=== PATIENT | male | born 1980 | race Caucasian/White ===

== ENCOUNTER 2016-09-22 03:41 | Inpatient (IN) | payer SELFPAY ==
--- NOTE | ~2016-09-22 | DS ---
Discharge Summary [facility] [address] [place]. [address] NAME: MACI SANDERSON : 84 STATUS : DIS IN PAT#: [id number] AGE: 36 ADM/REG DATE : 09/22/16 MR#: [id number] REPORT SERV DATE: 09/24/16 DICTATED BY: DARRELL LANDRY DATE: 09/23/16 REPORT STATUS : Draft TRANSCRIBED BY: MODLinette DATE: 09/23/16 ADMISSION DATE: 09/22/2016 DISCHARGE DATE: 09/23/2016 PROCEDURES DONE: 1. On 09/22/2016 chest x-ray: No acute process. 2. On 09/23/2016 chest x-ray: Borderline heart size. No change from prior study. CONSULTATION: Margret Kaur M.D. for Surgery. REASON FOR ADMISSION: Chest pain. HISTORY OF PRESENT ILLNESS: A 36-year-old white male with past medical history of coronary artery disease status post history of nonobstructive coronary artery disease, hypertension, hyperlipidemia, diabetes type 2, morbid obesity with BMI of 59, presenting with chest pain unknown duration. The patient was admitted for further evaluation of chest pain. The patient had a hypertensive urgency with a systolic blood pressure of greater than 200. The patient initially was seen at [facility] ER, and was transferred to [facility] for further evaluation and treatment. The patient had a positive stress test back on 02/28/2016. The patient underwent heart catheterization at that time and shows mild coronary arteries without significant stenosis. The patient had a normal left ventricular systolic function with an EF of 60%. Cardiology at that time recommended medical therapy and risk modification. On further questioning, the patient stated that he has not been taking his medications due to his son being autistic. Apparently, the patient has been noncompliant as far as taking his medications regularly. In addition, the patient has been complaining of abdominal pain secondary to the patient having a ventral hernia. Surgery was consulted for further evaluation and treatment. Surgery recommended the patient wearing an abdominal binder to decrease the abdominal hernia. More importantly, the patient was also recommended not to do heavy lifting. On the time of discharge, the patient was reminded to be compliant with his medications. During his hospital stay his blood pressure was well controlled while on his home medications. Prior to discharge, the patient also was asking that prescriptions written for one month supply of his medications. The patient admitted to not having any medications whatsoever. Questionable if this patient is following at [facility] for followup. Nonetheless, the patient advised to continue follow up with [facility] to continue his current medications. DISPOSITION: The patient is feeling fine, no complaints. ACTIVITY: As tolerated. DIET: Cardiac. INSTRUCTIONS UPON DISCHARGE: The patient is to follow up with [facility]. The patient advised to wear his abdominal binder. Discharge Summary [address] [address] NAME: MACI SANDERSON : 84 STATUS : DIS IN PAT#: [id number] AGE: 36 ADM/REG DATE : 09/22/16 MR#: [id number] REPORT SERV DATE: 09/24/16 DICTATED BY: DARRELL LADNRY DATE: 09/23/16 REPORT STATUS : Draft TRANSCRIBED BY: HAFSA DATE: 09/23/16 The patient advised not to do any heavy lifting. MEDICATIONS UPON DISCHARGE: 1. Amlodipine 10 mg p.o. daily. 2. Aspirin 81 mg p.o. daily. 3. Coreg 25 mg p.o. b.i.d. 4. Lisinopril/hydrochlorothiazide 20/25 mg p.o. daily. 5. Pravachol 20 mg p.o. daily. 6. Hydralazine 50 mg p.o. t.i.d. 7. Glucophage 50 mg p.o. daily. DIAGNOSES UPON DISCHARGE: 1. Chest pain, secondary to hypertensive urgency. 2. Hypertensive urgency. 3. Ventral hernia. 4. Noncompliance. CECILIA/HAFSA Darrell Landry MD / [id number] CC: Darrell Landry MD
--- NOTE | ~2016-09-22 | CN ---
Consultation Report [facility] [address] [place]. [address] NAME: MACI PETERSON : 84 STATUS : ADM IN PAT#: [id number] AGE: 36 ADM/REG DATE : 09/22/16 MR#: [id number] REPORT SERV DATE: 09/22/16 DICTATED BY: LINDA KAUR DATE: 09/22/16 REPORT STATUS : Draft TRANSCRIBED BY: MODL DATE: 09/22/16 CONSULTATION DATE OF CONSULTATION: 09/22/2016 REASON FOR CONSULTATION: Ventral hernia. HISTORY OF PRESENT ILLNESS: Mr. Peterson is a 36-year-old, obese gentleman with multiple comorbidities, who was transferred from [facility] to [facility] for chest pain, shortness of breath and right upper extremity weakness with numbness with paresthesias. Surgery was consulted for ventral hernia. He has undergone a cardiac workup, which has been negative despite his multiple comorbidities. He noted pain at the site of a chronic ventral hernia while he was trying to get out of bed at [facility]. Dr. Infante was able to reduce the hernia but it recurred in the IMCU and therefore, General Surgery was consulted for assistance. Please see Dr. Infante' dictation from 09/22/2016. For past medical history, past surgical history, allergies, medications, social history, family history, and review of systems as stated in the HPI, otherwise negative. PHYSICAL EXAMINATION: VITAL SIGNS: Temperature 97.5, pulse 72, respiratory rate 14, blood pressure 110/58. GENERAL: Alert and obese white male, in no acute distress. HEENT: Normocephalic, atraumatic. EOMI. PERRLA. Oropharynx is clear. NECK: Supple. No lymphadenopathy. LUNGS: Clear to auscultation bilaterally. HEART: Regular rate and rhythm. ABDOMEN: Obese. He has an 8 x 10 cm supraumbilical hernia, which is easily reduced, but based on the size of the hernia, it is a very wide-mouth hernia, it recurs immediately, it is not incarcerated. EXTREMITIES: He moves all extremities well. LABORATORY DATA: White count 10.3, H and H 12.7 and 38.9, platelets of 256. Electrolytes are within normal range. Creatinine is 0.82. LFTs are normal. Troponin 0.02 and BNP is 7.1. Chest x-ray is negative. ASSESSMENT AND PLAN: Chronic ventral hernia, which is reducible and not incarcerated. I would recommend abdominal binder for comfort, to avoid heavy lifting greater than 10 pounds, and return him back to his primary surgeon for elective repair, particularly when the patient has lost weight. It is my pleasure participating in the care of your patient. Consultation Report [facility] [id number] [place]. [address] NAME: MACI PETERSON : 84 STATUS : ADM IN PAT#: [id number] AGE: 36 ADM/REG DATE : 09/22/16 MR#: [id number] REPORT SERV DATE: 09/22/16 DICTATED BY: LINDA KAUR DATE: 09/22/16 REPORT STATUS : Draft TRANSCRIBED BY: HAFSA DATE: 09/22/16 STEVEN/HAFSA Linda Kaur M.D. / [id number] CC: Darrell Infante MD
--- NOTE | ~2016-09-22 | HP ---
History And Physical [facility] [address] [place]. [address] NAME: MACI PETERSON : 84 STATUS : ADM IN PAT#: [id number] AGE: 36 ADM/REG DATE : 09/22/16 MR#: [id number] REPORT SERV DATE: 09/22/16 DICTATED BY: VISH AVENDANO DATE: 09/22/16 REPORT STATUS : Draft TRANSCRIBED BY: MODLinette DATE: 09/22/16 DATE OF ADMISSION: 09/22/2016 PRIMARY CARE PHYSICIAN: [facility]. CHIEF COMPLAINT: Chest pain, shortness of breath, and right arm numbness and tingling. HISTORY OF PRESENT ILLNESS: Mr. Peterson is a 36-year-old gentleman with a history of nonobstructive coronary disease, hypertension, hyperlipidemia, ika-wnjifbp-jondkvmgr diabetes mellitus type 2 as well as morbid obesity, who presented to [facility] Department on Saturday evening with reports of acute onset of precordial chest pain with associated shortness of breath and radiation to the right arm. The patient states he was in his usual state of health until approximately 4 p.m. on Saturday evening when he developed the acute onset of substernal and precordial chest pain described as pressure. It was associated with some shortness of breath, as well as nausea and radiation to the right arm with his right arm feeling numb and tingly. Initial evaluation at [facility] Department notable for elevated blood pressures with systolics greater than 200s. Initial EKG and cardiac enzymes were unremarkable. Repeat cardiac enzymes a few hours later also was negative. The patient was given a full- strength aspirin as well as some morphine and sublingual nitroglycerin without any significant improvement in patient's chest pain symptoms. He underwent CT of the chest that was poorly timed bolus but no evidence of any central PE or aortic dissection. The patient received a total of 12 mg of IV morphine in addition to the above-mentioned nitroglycerin sublingual tablets without any significant improvement in his chest pain. He was then subsequently transferred to [facility] for higher level of care for further evaluation of patient's chest pain. The patient was recently admitted to [facility] in 01/2016 for reports of chest pain. At that time, it was identified that he had an abnormal stress test at [facility] a little while earlier. Given his abnormal stress test as well as his multiple cardiovascular risk factors, he underwent cardiac catheterization, which showed mild nonobstructive coronary artery disease with some 25% narrowing of the proximal LAD as well as the mid left circumflex as well as some mild luminal irregularities of the other major vessels. Upon arrival to [facility], the patient continues to complain of chest pain approximately 7/10 despite being placed on a nitroglycerin drip at only 5 mcg/minute. Continues to complain of some right arm numbness and tingling. His other major complaint is abdominal pain. He states that while at [facility] Department while trying to get up out of the hospital bed his well-known ventral hernia started to become more prominent and create some abdominal pain. REVIEW OF SYSTEMS: Comprehensive review of systems otherwise negative unless listed in history of present illness. History And Physical [address] [place]. [address] NAME: MACI PETERSON : 84 STATUS : ADM IN PAT#: [id number] AGE: 36 ADM/REG DATE : 09/22/16 MR#: [id number] REPORT SERV DATE: 09/22/16 DICTATED BY: VISH AVENDANO DATE: 09/22/16 REPORT STATUS : Draft TRANSCRIBED BY: HAFSA DATE: 09/22/16 PREVIOUS MEDICAL HISTORY: 1. Nonobstructive coronary disease. 2. Hypertension. 3. Hyperlipidemia. 4. Tzw-tthtepw-qaxrrjvso diabetes mellitus type 2. 5. Morbid obesity. 6. Ventral hernia. 7. Concern for possible conversion disorder. SURGICAL HISTORY: Right total knee arthroplasty. ALLERGIES: NO KNOWN DRUG ALLERGIES. HOME MEDICATIONS: Pending at the time of dictation. SOCIAL HISTORY: He is a former smoker. He reports he quit in 05/2016. Denies any alcohol. Denies any illicits. FAMILY MEDICAL HISTORY: Mother with COPD, she is a smoker. Father with history of coronary artery disease in his 50s, still living. Sibling with a history of a stroke secondary to drug abuse. LABS AND IMAGING: All obtained from transfer records from [facility] Emergency Department: 1. White count 11.4, hemoglobin 13.2, hematocrit is 40.0, and platelet count is 237. INR 1.0. 2. Sodium is 136, potassium 3.8, chloride 98, carbon dioxide 24, BUN 9, creatinine 0.74, glucose is 186, calcium is 8.4, magnesium is 1.8, protein 7.1, albumin is 3.6, bilirubin is 0.2, ALT is 21, AST 14, and alkaline phosphatase is 86. 3. Troponin is negative x2 separate checks. 4. EKG per my review shows no acute ischemia or infarction. Normal sinus rhythm. 5. CTA of the chest. Unfortunately was poorly timed contrast bolus and Radiology was only able to comment on the presence of no central PE as well as no dissection. PHYSICAL EXAMINATION: VITAL SIGNS: Temperature is afebrile. Pulse is 81, blood pressure is 137/79, and saturating well on room air. GENERAL: The patient is awake, alert, in no acute distress. Resting comfortably in bed. He is a well-developed, well-nourished, morbidly obese appearing male. HEENT: Atraumatic and normocephalic. Moist mucous membranes. Pupils equal, round, reactive to light and accommodation. Extraocular eye movements are intact. No scleral icterus. NECK: No jugular venous distention. No carotid bruits. CARDIAC: Regular rate and rhythm. No murmurs, rubs, or gallops. Normal S1, normal S2. LUNGS: Clear to auscultation bilaterally. No wheezes, rhonchi, or crackles. Decreased breath sounds in the bases. ABDOMEN: Obese, soft. The patient does have a very prominent ventral hernia above the level of the umbilicus, which I am unable to reduce with gentle pressure. I do not appreciate any History And Physical [address] [address] NAME: MACI PETERSON : 84 STATUS : ADM IN [facility]#: [id number] AGE: 36 ADM/REG DATE : 09/22/16 MR#: [id number] REPORT SERV DATE: 09/22/16 DICTATED BY: VISH AVENDANO DATE: 09/22/16 REPORT STATUS : Draft TRANSCRIBED BY: MODL DATE: 09/22/16 rebound, guarding, or rigidity. There are hypoactive bowel sounds throughout. EXTREMITIES: Warm, perfused. No cyanosis, clubbing, or edema. SKIN: Warm and dry. PSYCH: Affect appropriate. NEURO: Alert and oriented x3. Cranial nerves 2 through 12 grossly intact. Speech is normal. Gait not assessed. ASSESSMENT: Mr. Peterson is a 36-year-old gentleman who is being transferred from [facility] Department for the acute onset of substernal chest pain as well as refractory angina despite use of various antianginal medications. PROBLEM LIST: 1. Chest pain, likely atypical. 2. Refractory angina. 3. Hypertension. 4. Fkv-cvhqglm-cqjkmuhgw diabetes mellitus type 2. 5. Nonobstructive coronary disease. 6. Ventral hernia with abdominal pain. PLAN: 1. Chest pain with refractory angina. The patient has recent cardiac catheterization that shows mild nonobstructive coronary artery disease. The patient does have multiple cardiovascular risk factors including morbid obesity, diabetes, hypertension, hyperlipidemia, as well as recent tobacco abuse and family history. The patient reports continued severe chest pain despite administration of sublingual nitroglycerin, morphine, as well as placing him on a low-dose nitroglycerin infusion. We will continue nitroglycerin drip and up titrate as tolerated for achievement of pain-free status if possible. Continue aspirin. We will add on Plavix for dual anti-platelet therapy as well as a heparin infusion. We will schedule patient for a stress test in the morning. Continue to trend out cardiac enzymes as well as EKG. Should the patient's chest pain not able to be resolved or he have an abnormal stress test, we will consult Cardiology for assistance. 2. Hypertension. Continue patient's home medications once confirmed. The patient's blood pressure currently well controlled on nitroglycerin drip. 3. Vuc-jvbattx-egywynjhd diabetes mellitus type 2. Check hemoglobin A1c. We will place the patient on an insulin sliding scale. 4. Ventral hernia with abdominal pain. The patient reports some abdominal pain with his ventral hernia. On my examination, it does not appear to be strangulated or incarcerated, but I am unable to reduce it at this time with gentle pressure. We will consult General Surgery for assistance. 5. DVT prophylaxis. The patient will be placed on a heparin infusion. CODE STATUS: The patient wished to be full code. JCB/MODL History And Physical [address] [place]. [address] NAME: MACI PETERSON : 84 STATUS : ADM IN [facility]#: [id number] AGE: 36 ADM/REG DATE : 09/22/16 MR#: [id number] REPORT SERV DATE: 09/22/16 DICTATED BY: VISH AVENDANO DATE: 09/22/16 REPORT STATUS : Draft TRANSCRIBED BY: HAFSA DATE: 09/22/16 Vish Avendano MD / [id number] CC: Darrell Infante MD
[~2016-09-22 03:41] MED LIST: APRES50 PO; ASAB PO; CHOLESTEROL RX PO; COREG25 PO; GLUCPH PO; LISINOPRIL/HCTZ PO; NICODERM C21 MG/241 TOP; NORCO1 TA1 PO; NORV10 PO; PRAVAC PO; PRILO PO; PRIN20 PO; PRINZIDE1 TA1 PO; ZANTAC 75 PO; ZESTORETIC PO; ZESTORETIC1 TA1 PO
[2016-09-22 07:29] LABS: A/G RATIO 0.8 (0.7-1.9); ALBUMIN 3.2 G/DL (3.5-5.0); CALCIUM, SERUM 8.5 MG/DL (8.5-10.4); CHLORIDE, SERUM 102 MMOL/L (96-112); CO2 (CARBON DIOXIDE) 28 MMOL/L (24-34); CPK 42 U/L (0-200); CREATININE 0.82 MG/DL (0.70-1.30); GFR AFRICAN AMERICAN 134 ML/MIN (>=60); GFR NON AFRICAN AMERICAN 115 ML/MIN (>=60); GLOBULIN 3.9 G/DL (2.5-4.1); POTASSIUM, SERUM 3.9 MMOL/L (3.5-5.3); SGOT(AST) 12 U/L (5-40); SGPT(ALT) 29 U/L (5-65); SODIUM, SERUM 139 MMOL/L (135-148); TOTAL BILIRUBIN 0.5 MG/DL (0-1.2); TOTAL PROTEIN 7.1 G/DL (6.0-8.5); TROPONIN I <0.02 NG/ML (<0.05)
[2016-09-22 07:30] LABS: ALKALINE PHOSPHATASE 81 U/L (45-117); BUN (BLOOD UREA NITROGEN) 9 MG/DL (6-23); CK-MB < 0.5 NG/ML; GLUCOSE, SERUM 129 MG/DL (60-99)
[2016-09-22 08:04] LABS: BASOPHILS 0.4 %; BASOPHILS ABSOLUTE 0.04 10/3/uL (0.0-0.16); EOSINOPHILS 3.2 %; EOSINOPHILS ABSOLUTE 0.33 10/3/uL (0.0-0.53); HEMATOCRIT 38.9 % (40.0-51.0); HEMOGLOBIN 12.7 g/dL (13.6-17.8); IMMATURE GRANULOCYTES 0.4 %; IMMATURE GRANULOCYTES ABSOLUTE 0.04 10/3/uL (0.0-0.11); LYMPHOCYTES 24.2 %; MEAN CORPUS HGB CONC 32.6 g/dL (32.0-36.0); MEAN CORPUSCULAR HEMOGLOB 25.1 pg (26.0-34.0); MEAN PLATELET VOLUME 9.7 fL (9.2-13.0); MONOCYTES ABSOLUTE 0.82 10/3/uL (0.21-1.20); NEUTROPHILS 63.8 %; NEUTROPHILS ABSOLUTE 6.58 10/3/uL (2.02-8.40); PLATELET COUNT 256 10/3/uL (150-400); RBC DISTRIBUTION WIDTH 14.3 % (12.0-16.0); RED CELL COUNT 5.05 10/6/uL (4.7-6.1); WHITE BLOOD CELLS 10.3 10/3/uL (4.5-10.5)
[2016-09-22 08:05] LABS: MANUAL DIFF NO %
[2016-09-22 15:34] LABS: CK-MB < 0.5 NG/ML; CPK 38 U/L (0-200); TROPONIN I <0.02 NG/ML (<0.05)
[2016-09-22 22:14] LABS: CPK 39 U/L (0-200); TROPONIN I <0.02 NG/ML (<0.05)
[2016-09-22 22:16] LABS: CK-MB < 0.5 NG/ML
[2016-09-23 06:53] LABS: BASOPHILS 0.3 %; BASOPHILS ABSOLUTE 0.03 10/3/uL (0.0-0.16); EOSINOPHILS 2.7 %; EOSINOPHILS ABSOLUTE 0.31 10/3/uL (0.0-0.53); HEMATOCRIT 36.2 % (40.0-51.0); HEMOGLOBIN 11.7 g/dL (13.6-17.8); IMMATURE GRANULOCYTES 0.3 %; IMMATURE GRANULOCYTES ABSOLUTE 0.04 10/3/uL (0.0-0.11); LYMPHOCYTES 20.9 %; LYMPHOCYTES ABSOLUTE 2.39 10/3/uL (0.67-4.30); MEAN CORPUS HGB CONC 32.3 g/dL (32.0-36.0); MEAN CORPUSCULAR VOLUME 77.4 fL (80-100); MEAN PLATELET VOLUME 9.3 fL (9.2-13.0); MONOCYTES ABSOLUTE 1.03 10/3/uL (0.21-1.20); NEUTROPHILS 66.8 %; NEUTROPHILS ABSOLUTE 7.65 10/3/uL (2.02-8.40); PLATELET COUNT 246 10/3/uL (150-400); RBC DISTRIBUTION WIDTH 14.2 % (12.0-16.0); RED CELL COUNT 4.68 10/6/uL (4.7-6.1); WHITE BLOOD CELLS 11.5 10/3/uL (4.5-10.5)
[2016-09-23 06:56] LABS: PARTIAL THROMBO TIME 33.5 SEC (22.5-37.2)
[2016-09-23 07:02] LABS: MANUAL DIFF NO %
[2016-09-23 07:11] LABS: A/G RATIO 0.8 (0.7-1.9); ALBUMIN 3.1 G/DL (3.5-5.0); ALKALINE PHOSPHATASE 72 U/L (45-117); BUN (BLOOD UREA NITROGEN) 17 MG/DL (6-23); CALCIUM, SERUM 8.4 MG/DL (8.5-10.4); CHLORIDE, SERUM 97 MMOL/L (96-112); CO2 (CARBON DIOXIDE) 30 MMOL/L (24-34); CREATININE 1.18 MG/DL (0.70-1.30); GFR AFRICAN AMERICAN 93 ML/MIN (>=60); GFR NON AFRICAN AMERICAN 80 ML/MIN (>=60); GLOBULIN 3.7 G/DL (2.5-4.1); GLUCOSE, SERUM 126 MG/DL (60-99); POTASSIUM, SERUM 3.7 MMOL/L (3.5-5.3); SGOT(AST) 14 U/L (5-40); SGPT(ALT) 25 U/L (5-65); SODIUM, SERUM 135 MMOL/L (135-148); TOTAL BILIRUBIN 0.7 MG/DL (0-1.2); TOTAL PROTEIN 6.8 G/DL (6.0-8.5)
[2016-09-23 07:52] LABS: CPK 41 U/L (0-200); TROPONIN I <0.02 NG/ML (<0.05)
[2016-09-23 07:56] LABS: CK-MB < 0.5 NG/ML
== END 2016-09-23 22:22 | disposition home or self-care (01) | DRG 305 ==
LOC: IMCU 03:41 → 2SO 23:50
PROVIDERS: Hospitalist; Internal Medicine
DX: I16.0 Hypertensive urgency (principal); Z68.43 Body mass index [BMI] 50.0-59.9, adult; R07.9 Chest pain, unspecified; I25.10 Atherosclerotic heart disease of native coronary artery without angina pectoris; E78.5 Hyperlipidemia, unspecified; E11.9 Type 2 diabetes mellitus without complications; E66.01 Morbid (severe) obesity due to excess calories; K43.9 Ventral hernia without obstruction or gangrene; Z91.14 Patient's other noncompliance with medication regimen
CPT/HCPCS: 71010; 80053; 82550; 82553; 82962; 83735; 83880; 84100; 84484; 85025; 85730; 87641; 93005; A9270-GY; J2405

== ENCOUNTER 2016-10-09 11:40 | Emergency (ER) | payer SELFPAY ==
[2016-10-09 11:23] LABS: AMPHETAMINES (NOT ORD) POS (NEG); BARBITURATES (NOT ORDERED NEG (NEG); BENZODIAZEPINES (NOT ORD) NEG (NEG); CANNABINOIDS (THC) NEG (NEG); COCAINE (NOT ORDERED) NEG (NEG); OPIATES NEG (NEG); PHENCYCLIDINE(PCP) NEG (NEG); TRICYCLICS NEG (NEG)
[2016-10-09 11:52] LABS: BASOPHILS 0.6 %; BASOPHILS ABSOLUTE 0.05 10/3/uL (0.0-0.16); EOSINOPHILS 2.6 %; EOSINOPHILS ABSOLUTE 0.23 10/3/uL (0.0-0.53); HEMOGLOBIN 13.7 g/dL (13.6-17.8); IMMATURE GRANULOCYTES 0.1 %; IMMATURE GRANULOCYTES ABSOLUTE 0.01 10/3/uL (0.0-0.11); LYMPHOCYTES 25.3 %; LYMPHOCYTES ABSOLUTE 2.22 10/3/uL (0.67-4.30); MANUAL DIFF NO %; MEAN CORPUS HGB CONC 33.4 g/dL (32.0-36.0); MEAN CORPUSCULAR HEMOGLOB 26.1 pg (26.0-34.0); MEAN CORPUSCULAR VOLUME 78.1 fL (80-100); MEAN PLATELET VOLUME 9.4 fL (9.2-13.0); MONOCYTES 9.2 %; MONOCYTES ABSOLUTE 0.81 10/3/uL (0.21-1.20); NEUTROPHILS 62.2 %; NEUTROPHILS ABSOLUTE 5.45 10/3/uL (2.02-8.40); PLATELET COUNT 250 10/3/uL (150-400); RBC DISTRIBUTION WIDTH 14.4 % (12.0-16.0); RED CELL COUNT 5.25 10/6/uL (4.7-6.1); WHITE BLOOD CELLS 8.8 10/3/uL (4.5-10.5)
[2016-10-09 12:00] LABS: INTERNATIONAL NORMAL RATI 1.1 UNITS (-); PARTIAL THROMBO TIME 29.8 SEC (22.5-37.2)
[2016-10-09 12:15] LABS: BUN (BLOOD UREA NITROGEN) 14 MG/DL (6-23); CALCIUM, SERUM 8.7 MG/DL (8.5-10.4); CHEST PAIN PROFILE TAT 0 Hrs 29 Mins; CHLORIDE, SERUM 102 MMOL/L (96-112); CO2 (CARBON DIOXIDE) 28 MMOL/L (24-34); CREATININE 0.87 MG/DL (0.70-1.30); GFR AFRICAN AMERICAN 131 ML/MIN (>=60); GFR NON AFRICAN AMERICAN 113 ML/MIN (>=60); POTASSIUM, SERUM 3.9 MMOL/L (3.5-5.3); SODIUM, SERUM 139 MMOL/L (135-148); T4 (THYROXINE) TOTAL 11.3 MCG/DL (4.5-12.0); TROPONIN I <0.02 NG/ML (<0.05)
[2016-10-09 12:16] LABS: ACETAMINOPHEN LEVEL (TYLENOL) < 2.0 MCG/ML (10.0-20.0); ALCOHOL < 10 MG/DL (0); GLUCOSE, SERUM 99 MG/DL (60-99); SALICYLATE < 1.7 MG/DL (-)
== END 2016-10-09 14:16 | disposition admitted as inpatient to this hospital (09) ==
LOC: ER 11:40
PROVIDERS: Emergency Medicine
DX: K43.9 Ventral hernia without obstruction or gangrene (principal); F15.90 Other stimulant use, unspecified, uncomplicated; E66.01 Morbid (severe) obesity due to excess calories; I10 Essential (primary) hypertension; J44.9 Chronic obstructive pulmonary disease, unspecified; E11.9 Type 2 diabetes mellitus without complications; Z79.899 Other long term (current) drug therapy; Z87.891 Personal history of nicotine dependence; Z79.84 Long term (current) use of oral hypoglycemic drugs; Z79.82 Long term (current) use of aspirin
CPT/HCPCS: 71010; 80048; 80305; 80307; 83735; 83880; 84436; 84443; 84481; 84484; 85025; 85610; 85730; 99285; A9270-GY

== ENCOUNTER 2016-10-17 11:46 | Emergency (ER) | payer SELFPAY ==
--- NOTE | ~2016-10-17 | EHP ---
ER History and Physical [facility] [address] [place]. [address] NAME: MACI SANDERSON : 84 STATUS : [facility] PAT#: [id number] AGE: 36 ADM/REG DATE : 10/17/16 MR#: [id number] REPORT SERV DATE: 10/17/16 DICTATED BY: DAVI DORADO DATE: 10/17/16 REPORT STATUS : Draft TRANSCRIBED BY: MODL DATE: 10/17/16 CHIEF COMPLAINT: Nausea. PRESENT ILLNESS: Massively obese white male with a known ventral hernia. He presents to the emergency room with some nausea. He states his hernia has been out for several years and is chronically incarcerated. He was seen previously by Dr. Torres, who suggested that he lose weight and return to the office. PAST HISTORY: He has had previous knee problems and back problems and is currently unable to get around very well because of his weight and because of his knee. REVIEW OF SYSTEMS: He has had some nausea. He is chronically debilitated. No respiratory or disease. PHYSICAL EXAMINATION: GENERAL: Reveals a very large, in no acute distress. HEART: Had regular rate and rhythm. LUNGS: Clear. ABDOMEN: Soft. There was a large 10 x 12 cm ventral hernia present, only partially reducible and mostly incarcerated. The abdomen is soft. There is no evidence of strangulation, and there is no rebound tenderness noted. EXTREMITIES: Grossly within normal limits. IMPRESSION: Ventral hernia with chronic incarceration. PLAN: He should lose weight. Follow up in the office. I have discussed this with the patient and his family and they agree with this plan, and we will see him in the office. He knows to return if he should have severe pain, nausea or vomiting to the emergency room. CA/HAFSA Davi Dorado M.D. / [id number]
[2016-10-17 10:07] LABS: BASOPHILS 0.4 %; BASOPHILS ABSOLUTE 0.04 10/3/uL (0.0-0.16); EOSINOPHILS 2.5 %; EOSINOPHILS ABSOLUTE 0.23 10/3/uL (0.0-0.53); ER CBC TAT 0 Hrs 07 Mins; HEMATOCRIT 40.2 % (40.0-51.0); HEMOGLOBIN 13.4 g/dL (13.6-17.8); IMMATURE GRANULOCYTES 0.4 %; IMMATURE GRANULOCYTES ABSOLUTE 0.04 10/3/uL (0.0-0.11); LYMPHOCYTES ABSOLUTE 2.09 10/3/uL (0.67-4.30); MEAN CORPUS HGB CONC 33.3 g/dL (32.0-36.0); MEAN CORPUSCULAR HEMOGLOB 25.7 pg (26.0-34.0); MEAN CORPUSCULAR VOLUME 77.2 fL (80-100); MEAN PLATELET VOLUME 9.5 fL (9.2-13.0); MONOCYTES 6.3 %; MONOCYTES ABSOLUTE 0.57 10/3/uL (0.21-1.20); NEUTROPHILS 67.4 %; NEUTROPHILS ABSOLUTE 6.13 10/3/uL (2.02-8.40); PLATELET COUNT 218 10/3/uL (150-400); RBC DISTRIBUTION WIDTH 14.5 % (12.0-16.0); RED CELL COUNT 5.21 10/6/uL (4.7-6.1); WHITE BLOOD CELLS 9.1 10/3/uL (4.5-10.5)
[2016-10-17 10:08] LABS: MANUAL DIFF NO %
[2016-10-17 10:23] LABS: A/G RATIO 0.8 (0.7-1.9); ALBUMIN 3.5 G/DL (3.5-5.0); CHLORIDE, SERUM 106 MMOL/L (96-112); CO2 (CARBON DIOXIDE) 25 MMOL/L (24-34); CREATININE 0.76 MG/DL (0.70-1.30); GFR AFRICAN AMERICAN 138 ML/MIN (>=60); GFR NON AFRICAN AMERICAN 119 ML/MIN (>=60); GLOBULIN 4.3 G/DL (2.5-4.1); POTASSIUM, SERUM 4.1 MMOL/L (3.5-5.3); SGOT(AST) 10 U/L (5-40); SGPT(ALT) 24 U/L (5-65); SODIUM, SERUM 140 MMOL/L (135-148); TOTAL BILIRUBIN 0.3 MG/DL (0-1.2); TOTAL PROTEIN 7.8 G/DL (6.0-8.5)
[2016-10-17 10:24] LABS: ALKALINE PHOSPHATASE 92 U/L (45-117); BUN (BLOOD UREA NITROGEN) 10 MG/DL (6-23); GLUCOSE, SERUM 153 MG/DL (60-99)
[2016-10-17 13:28] LABS: ASCORBIC ACID (UR NOT ORDER) NEG (NEG); BILIRUBIN, URINE NEGATIVE (NEG); KETONE, URINE NEGATIVE (NEG); LEUKOCYTE ESTERASE(NOT OR NEG (NEG); NITRITE (URINE) NEG (NEG); WBC (NOT ORDERED) (RFLEX) 5 (0-5)
[2016-10-17 13:50] LABS: AMPHETAMINES (NOT ORD) NEG (NEG); BARBITURATES (NOT ORDERED NEG (NEG); BENZODIAZEPINES (NOT ORD) NEG (NEG); CANNABINOIDS (THC) NEG (NEG); COCAINE (NOT ORDERED) NEG (NEG); OPIATES POS (NEG); PHENCYCLIDINE(PCP) NEG (NEG); TRICYCLICS NEG (NEG)
== END 2016-10-17 13:40 | disposition home or self-care (01) ==
LOC: ER 11:46
PROVIDERS: Emergency Medicine; Nurse Practitioner
DX: K43.6 Other and unspecified ventral hernia with obstruction, without gangrene (principal); E11.9 Type 2 diabetes mellitus without complications; I10 Essential (primary) hypertension; Z79.899 Other long term (current) drug therapy; Z79.84 Long term (current) use of oral hypoglycemic drugs; Z79.82 Long term (current) use of aspirin
CPT/HCPCS: 80053; 80305; 81001; 83690; 85025; 96374; 96375; 99284; J1170; J2405; J2550

== ENCOUNTER 2016-10-19 23:42 | Inpatient (IN) | payer OTHER ==
--- NOTE | ~2016-10-19 | DS ---
Discharge Summary [facility] [address] [place]. [address] NAME: MACI SANDERSON : 84 STATUS : DIS IN PAT#: [id number] AGE: 36 ADM/REG DATE : 10/19/16 MR#: [id number] REPORT SERV DATE: 11/01/16 DICTATED BY: OSMEL GREGORIO DATE: 10/31/16 REPORT STATUS : Draft TRANSCRIBED BY: MODLinette DATE: 10/31/16 Data Collection from hospitalization DISCHARGE DIAGNOSES: 1. Incarcerated ventral umbilical hernia with strangulation of a portion of the omentum with bowel obstruction. 2. Hypertension. 3. Diabetes. 4. Morbid obesity. 5. Coronary artery disease. 6. Obstructive sleep apnea. CONSULTATIONS: None. PROCEDURES PERFORMED: Open repair of incarcerated strangulated ventral incisional hernia with [place] mesh on 10/19/2016. PATHOLOGY: Omentum and ventral hernia sac clinically incarcerated - foamy macrophage and focal neutrophilic infiltration with pigment laden macrophage response. MEDICATIONS: Maalox 30 mL daily as needed, Norvasc 10 mg daily, Coreg 25 mg twice a day, Apresoline 50 mg three times a day, Zestoretic one tablet daily, Glucophage 500 mg daily, Percocet 5/325 one tablet every four hours as needed, Pravachol 20 mg daily, and Gas-X 80 mg as needed. He was instructed not to continue aspirin. CONDITION AT DISCHARGE: Stable. DISPOSITION: The patient was discharged home on a regular diet with activities as instructed. He would follow up with me on 10/25/2016. He would follow up with his primary care physician as needed. HOSPITAL COURSE: This is a 36-year-old man who presented with an incarcerated hernia with possible strangulation, urgent repair was recommended. He was admitted to the hospital at this time for further evaluation and treatment. Upon admission, he was taken to the operating room where he underwent the above-mentioned procedure. He tolerated this well, and there were no complications. On postop day #1, he was feeling much better. Pain control was appropriate. O2 saturation was 97% on 3 liters. A binder was in place. Clear liquids were started. On postop day #2, he was up sitting in a chair. He seemed to be doing better. His abdomen was soft and nontender. He was placed on a regular diet. We encouraged him to ambulate. Oral analgesics were being used. The [employer] EXECUTIVE was discontinued. Discharge planning was performed. On 10/22/2016, he continued to do well. Discharge instructions were given. Due to his improved and stable condition, he was discharged home with the above-stated instructions. Information collected by: Mi Metz I submit the above information as my discharge summary. Discharge Summary [address] [facility] [address] NAME: MACI SANDERSON : 84 STATUS : DIS IN PAT#: [id number] AGE: 36 ADM/REG DATE : 10/19/16 MR#: [id number] REPORT SERV DATE: 11/01/16 DICTATED BY: OSMEL GREGORIO DATE: 10/31/16 REPORT STATUS : Draft TRANSCRIBED BY: HAFSA DATE: 10/31/16 TG/HAFSA Vania Gregorio M.D. / [id number] CC: Vania Gregorio M.D.
--- NOTE | ~2016-10-19 | HP ---
History And Physical [facility] [address] [place]. [address] NAME: MACI PETERSON : [birth year] STATUS : ADM IN [facility]#: [id number] AGE: 36 ADM/REG DATE : 10/19/16 MR#: [id number] REPORT SERV DATE: 10/20/16 DICTATED BY: OSMEL GREGORIO DATE: 10/20/16 REPORT STATUS : Draft TRANSCRIBED BY: MODL DATE: 10/20/16 DATE OF ADMISSION: 10/19/2016 CHIEF COMPLAINT: Abdominal pain. HISTORY OF PRESENT ILLNESS: Mr. Peterson is a 36-year-old male with a known umbilical hernia which had been chronically incarcerated. He has experienced increasing pain over the last few days, recently becoming severe, associated with nausea and vomiting. He presented to [facility] where he was found on CT and by exam to have an incarcerated hernia with bowel obstruction, with concern of strangulation and was transferred to [facility] for surgical intervention. Nothing has made him significantly better and he is asking for pain and nausea medication. ALLERGIES: HE HAS NO KNOWN MEDICAL ALLERGIES. MEDICATIONS: Norvasc, aspirin, Coreg, Apresoline, Zestoretic, Glucophage, Pravachol. PAST MEDICAL HISTORY: His medical illnesses include hypertension, diabetes. Previous abdominal surgeries none. FAMILY HISTORY: Significant for heart disease and his father had a heart attack. He denies ethanol or tobacco abuse. REVIEW OF SYSTEMS: His comprehensive review of systems was obtained, and he does have some depression and is on medication for that which was started since his last hospitalization here and that was Zoloft 50 mg daily. He otherwise has no ear, nose, and throat problems. No chest pain or shortness of breath. His GI problem is nausea and vomiting. He denies musculoskeletal or skin problems other than being overweight. He denies kidney or endocrine problems, bleeding diathesis, or history of blood clots, and his comprehensive review is otherwise negative. PHYSICAL EXAMINATION: VITAL SIGNS: Earlier today, blood pressure 188/122 and currently his blood pressure is 190/100, pulse is 108, and temperature 97.4. GENERAL: He is alert, in mild distress. HEENT: There is no scleral icterus. He has moist mucous membranes and he has no obvious goiter but his neck is fairly thick. There is no use of accessory muscles of breathing. CHEST: Clear. HEART: Regular rhythm with mild tachycardia. No murmurs. ABDOMEN: Obese and there are bowel sounds present and there is a large incarcerated hernia with redness of the skin and tender to palpation and I cannot reduce it manually. There is no palpable masses or organomegaly. EXTREMITIES: Reveal no cyanosis, clubbing, or edema. There are no diffuse rashes. LABORATORY DATA: Additional data obtained at [facility] includes elevated white count of History And Physical [address] [address] NAME: MACI PETERSON : [birth year] STATUS : ADM IN PAT#: [id number] AGE: 36 ADM/REG DATE : 10/19/16 MR#: [id number] REPORT SERV DATE: 10/20/16 DICTATED BY: OSMEL GREGORIO DATE: 10/20/16 REPORT STATUS : Draft TRANSCRIBED BY: HAFSA DATE: 10/20/16 20.4, hemoglobin 16.2, platelet count 353. His BUN is 33, and creatinine 1.06. His albumin is 4.2. CT scan revealed incarcerated hernia with obstruction. Lactate is found to be normal. Bilirubin mildly elevated at 1.6. IMPRESSION: Incarcerated and possibly strangulated nonreducible large umbilical hernia, recommended surgical intervention in order to avoid further strangulation or necrosis. I discussed with him the possibility of bowel resection, and also possibility of use for mesh with the risks including, but not limited to bleeding, infection, damage to adjacent organs, anastomotic leak, recurrent hernia, mesh infection or mesh erosion, DVT, heart and lung complications among others and he expressed understanding and agreed to proceed. SAURAV/HAFSA Vania Gregorio M.D. / [id number] CC: Vania Gregorio M.D.
--- NOTE | ~2016-10-19 | OP ---
Record Of Operation [facility] [address] [place]. [address] NAME: MACI PETERSON : [birth year] STATUS : ADM IN PAT#: [id number] AGE: 36 ADM/REG DATE : 10/19/16 MR#: [id number] REPORT SERV DATE: 10/20/16 DICTATED BY: OSMEL GREGORIO DATE: 10/20/16 REPORT STATUS : Draft TRANSCRIBED BY: MODL DATE: 10/20/16 DATE OF PROCEDURE: 10/19/2016 PREOPERATIVE DIAGNOSIS: Incarcerated ventral umbilical hernia. POSTOPERATIVE DIAGNOSIS: Incarcerated ventral umbilical hernia with strangulation of a portion of omentum with bowel obstruction. PROCEDURE: Open repair of incarcerated, strangulated ventral incisional hernia with onlay mesh. SURGEON: Vania Gregorio M.D. RESIDENT: Lydia Moss MD. ANESTHESIA: General. ESTIMATED BLOOD LOSS: Less than 50 mL. INDICATION: Mr. Peterson is a 36-year-old male, who presented with incarcerated hernia with possible strangulation, urgent repair was recommended to him. The risks including bleeding, infection, damage to adjacent organs, possible need for bowel resection, recurrent hernia, mesh erosion, recuperation, and anesthesia among others were discussed, and he agreed to proceed. DESCRIPTION: The patient was taken to the operating room and placed in supine position. General anesthesia was induced, the abdomen was prepped and draped, an incision was made over the incarcerated hernia, and there was both very dilated and also nondilated bowel and omentum within the large hernia sac. There was a defect which was approximately 6 cm in diameter, and after reducing the bowel and ensuring that there was no ongoing obstruction, the omentum was excised as it was very adherent to the hernia sac; this was done by clamping, dividing, and ligating with 0 Vicryl. Then, the hernia sac was removed from the subcutaneous tissue and passed off the table and the fascia was closed in a transverse fashion using #1 braided nylon Gambee stitches and an onlay mesh of Prolene was placed and sutured in position with 0 Nurolon. Drains were placed, these were 19-Turkish Nii drains, the subcutaneous tissue was closed with Vicryl and the skin with emmanuel. The patient tolerated the procedure well. JDS/HAFSA Vania Gregorio M.D. / [id number] Record Of Operation [facility] [address] [place]. [address] NAME: MACI PETERSON DOLORES : 84 STATUS : ADM IN PAT#: [id number] AGE: 36 ADM/REG DATE : 10/19/16 MR#: [id number] REPORT SERV DATE: 10/20/16 DICTATED BY: OSMEL GREGORIO DATE: 10/20/16 REPORT STATUS : Draft TRANSCRIBED BY: HAFSA DATE: 10/20/16 CC: Vania Gregorio M.D.
[2016-10-20 07:42] LABS: BASOPHILS 0.2 %; BASOPHILS ABSOLUTE 0.03 10/3/uL (0.0-0.16); EOSINOPHILS 0.2 %; EOSINOPHILS ABSOLUTE 0.03 10/3/uL (0.0-0.53); HEMATOCRIT 39.9 % (40.0-51.0); HEMOGLOBIN 13.2 g/dL (13.6-17.8); IMMATURE GRANULOCYTES 0.3 %; IMMATURE GRANULOCYTES ABSOLUTE 0.04 10/3/uL (0.0-0.11); LYMPHOCYTES 6.6 %; LYMPHOCYTES ABSOLUTE 0.86 10/3/uL (0.67-4.30); MEAN CORPUS HGB CONC 33.1 g/dL (32.0-36.0); MEAN CORPUSCULAR HEMOGLOB 25.7 pg (26.0-34.0); MEAN CORPUSCULAR VOLUME 77.8 fL (80-100); MEAN PLATELET VOLUME 9.3 fL (9.2-13.0); MONOCYTES 16.5 %; MONOCYTES ABSOLUTE 2.15 10/3/uL (0.21-1.20); NEUTROPHILS 76.2 %; NEUTROPHILS ABSOLUTE 9.91 10/3/uL (2.02-8.40); PLATELET COUNT 246 10/3/uL (150-400); RBC DISTRIBUTION WIDTH 15.1 % (12.0-16.0); RED CELL COUNT 5.13 10/6/uL (4.7-6.1)
[2016-10-20 07:43] LABS: MANUAL DIFF NO %
[2016-10-20 07:47] LABS: BUN (BLOOD UREA NITROGEN) 21 MG/DL (6-23); CALCIUM, SERUM 7.8 MG/DL (8.5-10.4); CHLORIDE, SERUM 102 MMOL/L (96-112); CO2 (CARBON DIOXIDE) 29 MMOL/L (24-34); CREATININE 0.89 MG/DL (0.70-1.30); GFR AFRICAN AMERICAN 129 ML/MIN (>=60); GFR NON AFRICAN AMERICAN 112 ML/MIN (>=60); GLUCOSE, SERUM 164 MG/DL (60-99); POTASSIUM, SERUM 3.8 MMOL/L (3.5-5.3); SODIUM, SERUM 138 MMOL/L (135-148)
[2016-10-20] MEDS ORDERED: ASAB PO (14:11)
[2016-10-20] MEDS ORDERED: GAS-X80 MG PO (14:11)
[2016-10-20] MEDS ORDERED: MAALOX PO (14:12)
[2016-10-20] MEDS ORDERED: COREG25 PO (14:15)
[2016-10-20] MEDS ORDERED: NORV10 PO (14:15)
[2016-10-20] MEDS ORDERED: PRAVAC PO (14:16)
[2016-10-20] MEDS ORDERED: APRES50 PO (14:16)
[2016-10-20] MEDS ORDERED: GLUCPH PO (14:16)
[2016-10-20] MEDS ORDERED: ZESTORETIC1 TA1 PO (14:16)
[2016-10-21 07:10] LABS: BASOPHILS 0.3 %; BASOPHILS ABSOLUTE 0.02 10/3/uL (0.0-0.16); EOSINOPHILS 5.5 %; EOSINOPHILS ABSOLUTE 0.41 10/3/uL (0.0-0.53); HEMOGLOBIN 12.1 g/dL (13.6-17.8); IMMATURE GRANULOCYTES 0.3 %; IMMATURE GRANULOCYTES ABSOLUTE 0.02 10/3/uL (0.0-0.11); LYMPHOCYTES 17.6 %; LYMPHOCYTES ABSOLUTE 1.32 10/3/uL (0.67-4.30); MEAN CORPUS HGB CONC 31.8 g/dL (32.0-36.0); MEAN CORPUSCULAR HEMOGLOB 25.7 pg (26.0-34.0); MEAN PLATELET VOLUME 9.4 fL (9.2-13.0); MONOCYTES 18.9 %; MONOCYTES ABSOLUTE 1.42 10/3/uL (0.21-1.20); NEUTROPHILS 57.4 %; NEUTROPHILS ABSOLUTE 4.32 10/3/uL (2.02-8.40); PLATELET COUNT 212 10/3/uL (150-400); RBC DISTRIBUTION WIDTH 15.1 % (12.0-16.0); RED CELL COUNT 4.71 10/6/uL (4.7-6.1)
[2016-10-21 07:16] LABS: MANUAL DIFF NO %; MEAN CORPUSCULAR VOLUME 80.7 fL (80-100); WHITE BLOOD CELLS 7.5 10/3/uL (4.5-10.5)
[2016-10-21 07:22] LABS: CHLORIDE, SERUM 100 MMOL/L (96-112); CO2 (CARBON DIOXIDE) 31 MMOL/L (24-34); CREATININE 0.85 MG/DL (0.70-1.30); GFR AFRICAN AMERICAN 132 ML/MIN (>=60); GFR NON AFRICAN AMERICAN 114 ML/MIN (>=60); POTASSIUM, SERUM 3.6 MMOL/L (3.5-5.3); SODIUM, SERUM 138 MMOL/L (135-148)
[2016-10-21 07:23] LABS: BUN (BLOOD UREA NITROGEN) 13 MG/DL (6-23); GLUCOSE, SERUM 126 MG/DL (60-99)
[2016-10-22] MEDS ORDERED: PCET PO (09:26)
== END 2016-10-22 16:16 | disposition home or self-care (01) | DRG 355 ==
LOC: 6NO 23:42
PROVIDERS: Colon & Rectal Surgery
PROC: 0WUF0JZ Supplement Abdominal Wall with Synthetic Substitute, Open Approach (ICD-10-PCS; principal; 2016-10-19)
DX: K42.0 Umbilical hernia with obstruction, without gangrene (principal); I10 Essential (primary) hypertension; I25.10 Atherosclerotic heart disease of native coronary artery without angina pectoris; G47.33 Obstructive sleep apnea (adult) (pediatric); E11.9 Type 2 diabetes mellitus without complications
CPT/HCPCS: 80048; 82962; 85025; 88307; A9270-GY; C1781; C9113; J0360; J0690; J0694; J2250; J2270; J2405; J3010

== ENCOUNTER 2016-12-12 17:26 | Emergency (ER) | payer OTHER ==
[~2016-12-12 17:26] MED LIST changes: +GAS-X80 MG PO; +MAALOX PO; +PCET PO
[2016-12-12 18:19] LABS: BASOPHILS 0.4 %; BASOPHILS ABSOLUTE 0.05 10/3/uL (0.0-0.16); EOSINOPHILS 2.3 %; ER CBC TAT 0 Hrs 09 Mins; HEMOGLOBIN 13.7 g/dL (13.6-17.8); IMMATURE GRANULOCYTES 0.4 %; IMMATURE GRANULOCYTES ABSOLUTE 0.05 10/3/uL (0.0-0.11); LYMPHOCYTES 19.7 %; LYMPHOCYTES ABSOLUTE 2.56 10/3/uL (0.67-4.30); MANUAL DIFF NO %; MEAN CORPUS HGB CONC 31.9 g/dL (32.0-36.0); MEAN CORPUSCULAR HEMOGLOB 25.1 pg (26.0-34.0); MEAN CORPUSCULAR VOLUME 78.8 fL (80-100); MEAN PLATELET VOLUME 9.7 fL (9.2-13.0); MONOCYTES 9.3 %; MONOCYTES ABSOLUTE 1.21 10/3/uL (0.21-1.20); NEUTROPHILS 67.9 %; NEUTROPHILS ABSOLUTE 8.83 10/3/uL (2.02-8.40); PLATELET COUNT 263 10/3/uL (150-400); RBC DISTRIBUTION WIDTH 14.3 % (12.0-16.0); RED CELL COUNT 5.46 10/6/uL (4.7-6.1)
[2016-12-12 18:36] LABS: A/G RATIO 0.8 (0.7-1.9); ALBUMIN 3.5 G/DL (3.5-5.0); ALKALINE PHOSPHATASE 87 U/L (45-117); BUN (BLOOD UREA NITROGEN) 14 MG/DL (6-23); CHLORIDE, SERUM 102 MMOL/L (96-112); CO2 (CARBON DIOXIDE) 30 MMOL/L (24-34); CREATININE 0.99 MG/DL (0.70-1.30); GFR AFRICAN AMERICAN 115 ML/MIN (>=60); GFR NON AFRICAN AMERICAN 99 ML/MIN (>=60); GLOBULIN 4.5 G/DL (2.5-4.1); GLUCOSE, SERUM 147 MG/DL (60-99); POTASSIUM, SERUM 3.9 MMOL/L (3.5-5.3); SGOT(AST) 20 U/L (5-40); SGPT(ALT) 32 U/L (5-65); SODIUM, SERUM 138 MMOL/L (135-148); TOTAL BILIRUBIN 0.4 MG/DL (0-1.2)
[2016-12-12 18:37] LABS: CALCIUM, SERUM 9.1 MG/DL (8.5-10.4)
== END 2016-12-12 19:58 | disposition home or self-care (01) ==
LOC: ER 17:26
PROVIDERS: Physician Assistant
DX: R10.30 Lower abdominal pain, unspecified (principal); I11.0 Hypertensive heart disease with heart failure; I50.9 Heart failure, unspecified; Z79.84 Long term (current) use of oral hypoglycemic drugs; Z79.899 Other long term (current) drug therapy
CPT/HCPCS: 80053; 85025; 99284; J1170; J2550